=== PATIENT | female | born 2000 | race Caucasian/White ===

== ENCOUNTER 2023-07-25 16:01 | Emergency (ER) | payer MEDICAID ==
[~2023-07-25] VITALS: Ht 172.7 cm; Wt 96.0 kg
[2023-07-25 16:27] VITALS: BP 130/76; TEMP 98.4; O2SAT 99
[2023-07-25 16:28] VITALS: PULSE 99; RESP 16
[2023-07-25] MEDS ORDERED: ALBU6.7H15 INH (16:45)
[2023-07-25] MEDS ORDERED: PRED5TAB48 MT (16:45)
[2023-07-25] MEDS ORDERED: BECL10.62 INH (16:45)
== END 2023-07-25 17:45 | disposition home or self-care (01) ==
LOC: ER 16:01
DX: J45.909 Unspecified asthma, uncomplicated (principal); Z76.0 Encounter for issue of repeat prescription
CPT/HCPCS: 99281; 99283